=== PATIENT | male | born 1955 | race Caucasian/White ===

== ENCOUNTER 2023-07-07 18:24 | Emergency (ER) | payer MEDICARE ==
[2023-07-07 18:54] LABS: #Basophils 0.1 thou/uL (0.0-0.2); #Lymphocytes 2.3 thou/uL (1.20-3.40); #Monocytes 0.4 thou/uL (0.11-0.59); #Neutrophils 3.5 thou/uL (1.40-6.50); %Basophils 1.1 % (0.0-1.0); %Eosinophils 0.1 % (0.0-10.0); %Lymphocytes 36.7 % (21.0-51.0); %Monocytes 6.5 % (0.0-10.0); %Neutrophils 55.6 % (42.0-75.0); Hematocrit 39.5 % (42.0-52.0); Hemoglobin 14.3 g/dL (14.0-18.0); Large Platelets SLIGHT (None Seen); MDiff Complete? YES; Mean Corpuscular HGB CONC 36.2 g/dL (32.0-36.0); Mean Corpuscular Hemoglobin 37.2 pg (27.0-31.0); Mean Corpuscular Volume 102.8 fl (78.0-98.0); Mean Platelet Volume 12.1 fL (7.4-10.4); Platelet Adequacy Comment Appears Decreased; Platelet Count 81 10x3/uL (130-400); RBC Distribution Width 14.9 % (11.5-14.5); Red Blood Cell (RBC) Count 3.84 mill/uL (4.70-6.10); White Blood Cell (WBC) Count 6.3 10x3/uL (4.8-10.8)
[2023-07-07 18:59] LABS: Acetaminophen Less than 10 mcg/mL (10.0-30.0); Alcohol 53.5 mg/dL (Less than 10); Magnesium 1.5 mg/dL (1.6-2.6); Salicylate Less than 8.0 mg/dL (15.0-30.0)
[2023-07-07 19:02] LABS: ALT (SGPT) 60 U/L (8-55); AST (SGOT) 59 U/L (5-34); Albumin 3.6 g/dL (3.4-4.8); Alkaline Phosphatase 76 U/L (40-110); Anion Gap 19 mmol/L (10-20); BUN (Urea Nitrogen) 15 mg/dL (8.4-25.7); Bilirubin, Total 0.4 mg/dL (0.2-1.2); CK (CPK) 1412 U/L (30-200); Calc. Creatinine Clearance 0 mL/min (70-130); Calcium 8.4 mg/dL (7.8-10.44); Carbon Dioxide 18 mmol/L (23-31); Chloride 108 mmol/L (98-107); Estimated GFR 100; Globulin 2.9 g/dL (2.4-3.5); Glucose 113 mg/dL (80-115); Potassium 4.3 mmol/L (3.5-5.1); Protein, Total 6.5 g/dL (5.8-8.1); Sodium 141 mmol/L (136-145)
[2023-07-07 19:03] LABS: Troponin I 0.012 ng/mL (< 0.028)
[2023-07-07] MEDS ORDERED: Sodium Chloride 0.9% 1,000 ML ONE ×2 (19:25→20:43)
[2023-07-07] MEDS ORDERED: Magnesium 2 GM/50 ML BAG (IN WATER) ONE (19:25)
[2023-07-07] MEDS ORDERED: Piperacillin/Tazobactam 3.375 GM VIAL ONE (19:27)
[2023-07-07] MEDS ORDERED: Sodium Chloride 0.9% 100 ML ONE (19:27)
[2023-07-07] MEDS ORDERED: Vancomycin 1 GM VIAL ONE (19:54)
[2023-07-07] MEDS ORDERED: Sodium Chloride 0.9% 250 ML 250 ML ONE (19:54)
[2023-07-07 20:21] LABS: Bilirubin Negative (Negative); Blood, Urine Trace (Negative); Clarity Clear (Clear); Glucose, Urine (Dipstick) Negative (Negative); Ketone, Urine Negative (Negative); Leukocyte Negative (Negative); Nitrite Negative (Negative); Protein, Urine (Dipstick) Negative (Neg-Trace); Urobilinogen 0.2 mg/dL (Less than 2); pH, Urine 5.5 (5.0-9.0)
[2023-07-07 20:25] LABS: CAUTI Indications for Culture Alt mental st,lethar; RBC/HPF 0-3 HPF (0-3); Squamous Epithelial 0-3 HPF (0-3); WBC/HPF 0-3 HPF (0-3)
[2023-07-07 20:26] LABS: Urine Culture Reflex No No
[2023-07-07 20:31] LABS: Amphetamine Not Detected (NotDetected); Barbiturates Screen Not Detected (NotDetected); Benzodiazepine Screen Detected (NotDetected); Cocaine Metabolite Screen Not Detected (NotDetected); Methadone Not Detected (NotDetected); Methamphetamine Not Detected (NotDetected); Opiate Screen Not Detected (NotDetected); Oxycodone Screen Not Detected (NotDetected); Phencyclidine (PCP) Not Detected (NotDetected); THC/Cannabinoid Screen Not Detected (NotDetected); Tricyclic Screen Not Detected (NotDetected)
[2023-07-07 21:24] LABS: Lactic Acid 3.1 mmol/L (0.5-2.2)
== END 2023-07-07 21:16 | disposition short-term general hospital (02) ==
LOC: MADERS 18:24 → EDBD 18:24 → MADERS 21:16
DX: S22.011A Stable burst fracture of first thoracic vertebra, initial encounter for closed fracture (principal); M62.82 Rhabdomyolysis; F10.129 Alcohol abuse with intoxication, unspecified; E83.42 Hypomagnesemia; D69.6 Thrombocytopenia, unspecified; R41.82 Altered mental status, unspecified; I10 Essential (primary) hypertension; E78.5 Hyperlipidemia, unspecified; K21.9 Gastro-esophageal reflux disease without esophagitis; E11.9 Type 2 diabetes mellitus without complications; F17.210 Nicotine dependence, cigarettes, uncomplicated; X58.XXXA Exposure to other specified factors, initial encounter; Y90.2 Blood alcohol level of 40-59 mg/100 ml; Z79.899 Other long term (current) drug therapy
CPT/HCPCS: 51701; 70450; 71045; 71260; 72125; 74177; 80053; 80306; 80307; 81001; 82550; 83605; 83735; 83880; 84484; 85025; 87040; 93005; 96365; 96367; 96368; J2543; J3370; J3475; J3490; J7050